=== PATIENT | female | born 1935 | race Caucasian/White ===

== ENCOUNTER 2020-04-10 15:32 | Emergency (ER) | payer MEDICARE, SELFPAY ==
[2020-04-10 15:40] VITALS: BP 177/81; PULSE 103; RESP 16; TEMP 36.5; O2SAT 94
--- NOTE | 2020-04-10 16:00 | DI.CT_ITS ---
EXAM: CT HEAD WO CLINICAL HISTORY: Trauma, posterior pain, hematoma. TECHNIQUE: Imaging Protocol: Axial computed tomography images with coronal and sagittal reformatted images were created and reviewed COMPARISON: No exams were available for comparison FINDINGS: Ventricles and Extra axial spaces: Normal in size and morphology for the patient's age. Hemorrhage: None. Cerebral parenchyma: There are areas of decreased attenuation in the white matter most consistent wit h small vessel ischemic disease. No evidence of an acute territorial infarct. Midline shift: None. Brainstem/Cerebellum: Normal. Calvarium: Normal. Visualized Paranasal sinuses/Mastoids: Clear. Soft Tissues: There is a scalp hematoma and laceration overlying the left parietal bone. Surgical st aples are seen in place. IMPRESSION: 1. No acute intracranial process. 2. Left parietal scalp hematoma and laceration with surgical cole in place. RADIATION DOSE DELIVERED: 720.53mGy.cm Total DLP DATA REPOSITORY: All CT scans at this facility are submitted to the National Radiology Data Registry (NRDR) Dose Index Registry (DIR) with the [employer] ([employer]). RADIATION OPTIMIZATION: All CT scans at this facility use at least one of these dose optimization te chniques: automated exposure control; mA and/or kV adjustment per patient size (includes targeted exa ms where dose is matched to clinical indication); or iterative reconstruction.
--- NOTE | 2020-04-10 16:01 | W.ED.GENAD ---
Discharge Plan Disposition Patient Disposition: HOME Condition: Improving Discharge Details Clinical Impression: Laceration of scalp, Hematoma of scalp Primary Care Provider: Unknown,Unknown ED Provider: Robert Corona Home Meds and New Rx's Prescriptions: Continued glyburide 5 mg Tablet 5 mg PO DAILY RF: 0 losartan 25 mg Tablet 25 mg PO DAILY RF: 0 hydrochlorothiazide 25 mg Tablet 25 mg PO DAILY RF: 0 levothyroxine 112 mcg Tablet 112 DAILY RF: 0 metformin 750 mg Tablet Extended Release 24 Hr 750 mg PO DAILY RF: 0 Discharge Instructions Instructions: Contusion in Adults (ED), Hematoma (ED) Additional Instructions: Continue your regularly prescribed medications. May gently shower with soap and water and pat dry area. May use Tylenol as needed for aches or pains. May apply ice to area to reduce discomfort. Your scalp hematoma will slowly resolve over weeks time. Return or see nearest healthcare facility develop fever, foul-smelling discharge from the wound, or any other acute concerns. Daljit to be removed in 7 days time. Return or see your nearest healthcare facility. Medical Decision Making 84-year-old female who is in the [place] area. She is here with her a retired physician. She fell backwards while carrying groceries after slipping on a slight incline and struck her head. There was no loss of consciousness. She denies significant headache. She has no neck/back/chest or abdominal pain. Her primary care clinic was contacted and she has an up-to-date tetanus as of May 2017. Patient's posterior scalp wound was irrigated and cleansed and she is found to have a 1 cm laceration. This was closed with 2 surgical daljit. Patient referred for CT scan of the head which does not show any acute intracranial findings. Patient is stable and improved. She is appropriate for discharge to home. She and her were informed as to home care and indications to seek reevaluation. HPI General Mode of arrival: ambulatory. Date/Time Provider Initiated Documentation: 04/10/20 15:45. Limitations to Documentation: no limitations. Information obtained by: patient and family. History of Present Illness 84 year old F presents to the emergency department with the chief complaint of Posterior head injury, described as moderate, Quality is described as dull and constant, and is localized to the head. Patient reports no radiation. Patient started experiencing this minute(s) and it has been constant. No relieving factors improve symptom(s), No exacerbating factors reported . Patient notes denies nausea/vomiting, syncope and weakness. Patient did receive the following treatments prior to arrival, none Related Data Home Medications Medication Instructions Recorded Confirmed glyburide 5 mg PO DAILY 04/10/20 04/10/20 hydrochlorothiazide 25 mg PO DAILY 04/10/20 04/10/20 levothyroxine 112 DAILY 04/10/20 losartan 25 mg PO DAILY 04/10/20 04/10/20 metformin 750 mg PO DAILY 04/10/20 04/10/20 Allergies Allergy/AdvReac Type Severity Reaction Status Date / Time codeine Allergy Unverified 04/10/20 15:45 General Stated Complaint: HeadInjury YAHIR: 4 Review of Systems Narrative: Unsure of tetanus status [facility] Social History Smoking/Tobacco Use Status: Never Alcohol Intake: never Substance use type: does not use Exam Narrative Exam Narrative: GEN: awake, alert, oriented 3. Pleasant, well groomed, interactive. HEAD: Normocephalic, posterior scalp hematoma with dried blood, approximately 3 cm stellate laceration ENT: Mucous membranes moist, oropharynx unremarkable, External ear exam unremarkable EYES: PERRL, EOMI NECK: Nontender. Full ROM, no AMBER, no menigismus CHEST/RESP: Nontender, clear to auscultation bilateral, no wheeze/rhonchi/rales CARDIOVASCULAR: RRR, no murmur, rub marli. 2+ Rad pulse bilateral EXT: Full ROM, no edema, no rash Neuro: Grossly normal neurologic exam, conversant, interactive. Psych: Speech fluent, thoughts congruent, affect normal Course Vital Signs Vital signs: Vital Signs Temperature 36.5 C 04/10/20 15:40 Pulse 103 H 04/10/20 15:40 Respiratory Rate 16 04/10/20 15:40 Blood Pressure 177/81 H 04/10/20 15:40 Pulse Oximetry 94 04/10/20 15:40 Temperature 36.5 C 04/10/20 15:40 Temperature Source Skin 04/10/20 15:40 Pulse 103 H 04/10/20 15:40 Respiratory Rate 16 04/10/20 15:40 Respiratory Effort Non-Labored 04/10/20 15:40 Blood Pressure 177/81 H 04/10/20 15:40 Blood Pressure Position Sitting 04/10/20 15:40 Pulse Oximetry 94 04/10/20 15:40 Oxygen Delivery Method Room Air 04/10/20 15:40 Oxygen Flow Rate 0 04/10/20 15:40 Pain Level 2 04/10/20 15:40 Procedures Laceration Laceration 1: Site: scalp Size (cm): 3 Description: stellate Depth: simple, single layer Local Anesthetic: Lidocaine 1% Amount of anesthesia used (mL): 1 Pre-repair: wound explored Skin layer closed with: other (Surgical daljit x8)
--- NOTE | 2020-04-10 16:30 | NUR.NOTE ---
Nursing Note: PCP Katie Dyson [facility] phone # [phone].Dinorah Narvaez
--- NOTE | 2020-04-10 16:44 | DI.VRAD_ITS ---
PROCEDURE INFORMATION: Exam: CT Head Without Contrast Exam date and time: 04/10/2020 4:30 PM Age: 84 years old Clinical indication: Injury or trauma; Fall; Laceration; Consciousness not specified; Without residual foreign body; Scalp; Injury date: Today TECHNIQUE: Imaging protocol: Computed tomography of the head without contrast. Radiation optimization: All CT scans at this facility use at least one of these dose optimization techniques: automated exposure control; mA and/or kV adjustment per patient size (includes targeted exams where dose is matched to clinical indication); or iterative reconstruction. COMPARISON: No relevant prior studies available. FINDINGS: Brain: Mild nonspecific hypodensities of the periventricular and deep subcortical white matter, most likely secondary to chronic small vessel ischemic change. No intracranial hemorrhage or extra-axial fluid collection. No evidence of mass effect or midline shift. Lopez-white matter differentiation is normal. Cerebral ventricles: Mild prominence of the ventricles and sulci, most likely attributed to parenchymal volume loss. Bones/joints: No acute osseus lesion or fracture. Paranasal sinuses: Visualized sinuses are unremarkable. No fluid levels. Mastoid air cells: Unremarkable. Soft tissues: Left parietal scalp hematoma and laceration, hematoma measuring up to 1.6 cm in thickness. Overlying surgical cole in place. IMPRESSION: 1. No acute intracranial pathology. 2. Left parietal scalp hematoma and laceration Dictated and Authenticated by: Evan Wall MD. Ordering:SAMANTHA Jones MD
== END 2020-04-10 17:33 | disposition home or self-care (01) ==
PROVIDERS: Emergency Provider Emergency Medicine
DX: S01.01XA Laceration without foreign body of scalp, initial encounter (principal); W19.XXXA Unspecified fall, initial encounter
CPT/HCPCS: 12001; 99282; 70450; 99281